=== PATIENT | female | born 1995 | race Caucasian/White ===

== ENCOUNTER 2018-04-23 08:05 | Outpatient (CLI) | payer OTHER | END 2018-04-23 08:14 | disposition home or self-care (01) | LOC: LAB 08:05 | DX: N91.2 Amenorrhea, unspecified (principal) ==

== ENCOUNTER 2018-04-25 07:23 | Outpatient (CLI) | payer OTHER | END 2018-04-25 08:00 | disposition home or self-care (01) | LOC: LAB 07:23 | DX: N91.1 Secondary amenorrhea (principal) ==

== ENCOUNTER → 2018-05-18 | Emergency (ER) | payer OTHER ==
[~2018-05-18] VITALS: Ht 154.9 cm; Wt 66.7 kg
[~2018-05-18] MED LIST: FOLIC ACID0.4 MG; PRENATABS FA T1 EACH; VITAMIN D35000 UNI1; ZOFRAN ODT4 MG PO
== END | disposition home or self-care (01) ==
LOC: ER 18:21
DX: O21.0 Mild hyperemesis gravidarum (principal); Z34.01 Encounter for supervision of normal first pregnancy, first trimester